=== PATIENT | female | born 1955 | race Two or more races ===

== ENCOUNTER 2018-06-09 15:40 | Emergency (ER) | payer MEDICAID ==
[~2018-06-09] VITALS: Ht 167.6 cm; Wt 77.1 kg
[2018-06-09 15:52] VITALS: BP 117/75
== END 2018-06-09 17:45 | disposition left against medical advice (07) ==
LOC: ER 15:40 → EDBD 15:40 → ER 17:45
DX: T78.40XA Allergy, unspecified, initial encounter (principal); L50.9 Urticaria, unspecified; L29.9 Pruritus, unspecified; Z53.21 Procedure and treatment not carried out due to patient leaving prior to being seen by health care provider